=== PATIENT | female | born 2000 | race Caucasian/White ===

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

== ENCOUNTER → 2020-08-10 | Outpatient (CLI) | payer OTHER ==
--- NOTE | 2020-08-10 12:28 | US ---
EXAMINATION TYPE: US abdomen complete DATE OF EXAM: 08/10/2020 COMPARISON: NONE CLINICAL HISTORY: R10.12 LUQ PAIN. Pain EXAM MEASUREMENTS: Liver Length: 13 cm Gallbladder Wall: .2 cm CBD: .3 cm Spleen: 9.7 cm Right Kidney: 9.0 x 3.5 x 3.7 cm Left Kidney: 9.5 x 4.7 x 4.12 cm Pancreas: wnl Liver: wnl Gallbladder: wnl Evidence for sonographic Garcia's sign: No CBD: wnl Spleen: wnl Right Kidney: wnl Left Kidney: wnl Upper IVC: wnl Abd Aorta: wnl The liver is homogenous. The intrahepatic portion of the IVC and proximal abdominal aorta are within normal limits. There is no evidence of cholelithiasis. Common bile duct is unremarkable. The visu alized portions of the pancreas are homogenous. The spleen is unremarkable. Kidneys are symmetric a nd free of hydronephrosis. No renal lesions are seen. IMPRESSION: No distinct abnormality appreciated.
== END | disposition home or self-care (01) ==
LOC: RADUSWWP 07:33
PROVIDERS: ATTEND Family Medicine
DX: R10.12 Left upper quadrant pain (principal)
CPT/HCPCS: 76700

== ENCOUNTER → 2020-10-07 | Outpatient (CLI) | payer OTHER ==
[2020-10-07 20:16] LABS: Basophils # (A) 0.04 X 10*3/uL (0.00-0.10); Basophils % (A) 0.4 %; Eosinophils # (A) 0.09 X 10*3/uL (0.04-0.35); Eosinophils % (A) 0.9 %; HCT 40.9 % (37.2-46.3); HGB 13.5 g/dL (12.0-15.0); Lymphocytes # (A) 2.24 X 10*3/uL (0.90-5.00); Lymphocytes % (A) 21.5 %; MCH 30.8 pg (27.0-32.0); MCV 93.4 fL (80.0-97.0); Mean Platelet Volume 10.8 fL (9.5-12.2); Monocytes # (A) 0.63 X 10*3/uL (0.20-1.00); Neutrophils # (A) 7.38 X 10*3/uL (1.80-7.70); Neutrophils % (A) 70.8 %; Platelet Count 250 X 10*3/uL (140-440); RBC 4.38 X 10*6/uL (4.10-5.20); RDW 11.9 % (11.5-14.5); WBC 10.42 X 10*3/uL (4.50-10.00)
[2020-10-07 21:02] LABS: Thyroid Peroxidase Antibodies 34.8 U/mL (0.0-60.0)
[2020-10-07 21:17] LABS: Immunoglobulin E 20.7 IU/mL (0.00-114.00)
[2020-10-07 22:16] LABS: African American GFR (CKD) 144.6 (60.0-200.0); Albumin 4.7 g/dL (3.80-4.90); Albumin/Globulin Ratio 2.35 (1.60-3.17); Anion Gap 10.2 mmol/L (4.00-12.00); BUN/Creat Ratio 21.43 Ratio (12.00-20.00); Calcium 9.6 mg/dL (8.7-10.3); Carbon Dioxide 23.8 mmol/L (21.6-31.8); Non-African American GFR(CKD) 124.7 (60.0-200.0); Total Bilirubin 0.3 mg/dL (0.2-1.2); Total Protein 6.7 g/dL (6.2-8.2)
[2020-10-07 22:25] LABS: Erythrocyte Sedimentation Rate 42 mm/Hr (0-20)
== END | disposition home or self-care (01) ==
LOC: LABWHC1 13:07
PROVIDERS: ATTEND Allergy & Immunology
DX: T78.3XXA Angioneurotic edema, initial encounter (principal)
CPT/HCPCS: 36415; 80053; 82784; 82785; 85025; 85652; 86160; 86161; 86376; 86800

== ENCOUNTER → 2020-10-18 | Outpatient (CLI) | payer OTHER ==
[2020-10-18 18:02] LABS: Protein, Total 6.7 g/dL (6.2-8.2)
[2020-10-19 11:31] LABS: Free Kappa Lt Chain Qnt, Serum 0.59 mg/dL (0.33-1.94); IgG Subclass 3 18.1 mg/dL (11.0-85.0); IgG Subclass 4 18.7 mg/dL (3.0-175.0)
[2020-10-19 13:42] LABS: Albumin 3.62 g/dL (3.80-4.90); Gamma Globulin 0.62 g/dL (0.70-1.50)
[2020-10-19 15:50] LABS: Gliadin AB IgG, Deaminated NEGATIVE (NEGATIVE)
[2020-10-19 16:56] LABS: Gliadin AB IgA, Deaminated NEGATIVE (NEGATIVE); Gliadin AB IgA, Unit 0.3 U/mL
== END | disposition home or self-care (01) ==
LOC: LABWHC1 09:17
PROVIDERS: ATTEND Allergy & Immunology
DX: T78.3XXA Angioneurotic edema, initial encounter (principal); R10.9 Unspecified abdominal pain
CPT/HCPCS: 36415; 82784; 82785; 82787; 83516; 83520; 83883; 84165; 86334

== ENCOUNTER 2021-01-31 20:40 | Emergency (ER) | payer OTHER ==
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
[2021-01-31 22:43] VITALS: BP 116/75; PULSE 64; RESP 18; TEMP 97.5
== END 2021-01-31 22:41 | disposition home or self-care (01) ==
LOC: EC 20:40
DX: S01.82XA Laceration with foreign body of other part of head, initial encounter (principal); F41.9 Anxiety disorder, unspecified; W25.XXXA Contact with sharp glass, initial encounter; W22.8XXA Striking against or struck by other objects, initial encounter; Y92.410 Unspecified street and highway as the place of occurrence of the external cause
CPT/HCPCS: 99283

== ENCOUNTER 2021-04-12 11:39 | Emergency (ER) | payer OTHER ==
[2021-04-12 12:14] VITALS: TEMP 97.9
[2021-04-12] MEDS ORDERED: SODIUM CHLORIDE 0.9% 1,000 ML IV STA (13:03)
[2021-04-12] MEDS ORDERED: ONDANSETRON 4 MG/2 ML VIAL IVP STA (13:03)
[2021-04-12 13:21] LABS: Amorphous Sediment,Urine Rare /hpf; Appearance,Urine Cloudy (Clear); Bacteria,Urine Rare /hpf; Bilirubin,Urine Negative (Negative); Blood,Urine Negative (Negative); Color,Urine Yellow; Glucose,Urine (UA) Negative (Negative); Ketones,Urine Negative (Negative); Leukocyte Esterase,Urine Large (Negative); Mucus,Urine Moderate /hpf; Nitrite,Urine Negative (Negative); PH, Urine 7.5 (5.0-8.0); Protein,Urine Trace (Negative); RBC,Urine 26 /hpf (0-5); Specific Gravity,Urine 1.024 (1.001-1.035); Squamous Epithelial Cell,Urine 10 /hpf (0-4); Urobilinogen,Urine <2.0 mg/dL (<2.0); WBC,Urine 43 /hpf (0-5)
[2021-04-12 13:26] LABS: Basophils % (A) 1 %; Eosinophils # (A) 0.1 k/uL (0-0.7); Eosinophils % (A) 1 %; HCT 41.6 % (34.0-46.0); HGB 14.2 gm/dL (11.4-16.0); Lymphocytes # (A) 2.3 k/uL (1.0-4.8); Lymphocytes % (A) 32 %; MCH 31.3 pg (25.0-35.0); MCHC 34.2 g/dL (31.0-37.0); MCV 91.5 fL (80.0-100.0); Mean Platelet Volume 7.4; Monocytes # (A) 0.3 k/uL (0-1.0); Monocytes % (A) 4 %; Neutrophils # (A) 4.4 k/uL (1.3-7.7); Neutrophils % (A) 61 %; Platelet Count 291 k/uL (150-450); RBC 4.55 m/uL (3.80-5.40); RDW 12.7 % (11.5-15.5); WBC 7.1 k/uL (3.8-10.6)
[2021-04-12 13:33] LABS: ALT 23 U/L (4-34); AST 29 U/L (14-36); African American GFR (CKD) >90 (>60 ml/min/1.73 sqM); Albumin 4.5 g/dL (3.5-5.0); Alkaline Phosphatase 76 U/L (38-126); Anion Gap 8 mmol/L; Blood Urea Nitrogen 24 mg/dL (7-17); Carbon Dioxide 25 mmol/L (22-30); Chloride 104 mmol/L (98-107); Glucose 92 mg/dL (74-99); Non-African American GFR(CKD) >90 (>60 ml/min/1.73 sqM); Potassium 4.3 mmol/L (3.5-5.1); Sodium 137 mmol/L (137-145); Total Bilirubin 0.2 mg/dL (0.2-1.3); Total Protein 7.3 g/dL (6.3-8.2)
[2021-04-12 13:50] VITALS: BP 104/57; PULSE 63; RESP 18
--- NOTE | 2021-04-12 13:52 | CT ---
EXAMINATION TYPE: CT abdomen pelvis wo con DATE OF EXAM: 04/12/2021 COMPARISON: None HISTORY: left flank pain, UTI CT DLP: 374.6 mGycm Examination of the solid and hollow viscera is limited given the lack of contrast. FINDINGS: LUNG BASES: No evidence for nodule. No evidence for infiltrate. LIVER/GB: The gallbladder is unremarkable. No space-occupying hepatic lesion. PANCREAS: No pancreatic mass identified. No inflammatory process seen. SPLEEN: No evidence for splenomegaly. No intrasplenic lesions seen. ADRENALS: No adrenal nodules identified. No evidence for thickening. KIDNEYS: No evidence for renal mass. No nephrolithiasis. No hydronephrosis. BOWEL: Appendix has a normal appearance. No evidence of bowel obstruction. No inflammatory process. Lymph nodes: No evidence for adenopathy greater than 1 cm. Abdominal aorta: Atheromatous changes seen. No evidence for aneurysm. Genital organs: No significant abnormality. Other: No significant abnormality. IMPRESSION: NO SIGNIFICANT ABNORMALITY TO ACCOUNT FOR THE PATIENT'S SYMPTOMS.
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
== END 2021-04-12 14:21 | disposition home or self-care (01) ==
LOC: EC 11:39
DX: N39.0 Urinary tract infection, site not specified (principal)
CPT/HCPCS: 36415; 80053; 85025; 81001; 81025; 87086; 74176; 96374; 96361; 99284; J2405

== ENCOUNTER 2021-07-11 14:02 | Emergency (ER) | payer OTHER ==
[2021-07-11] MEDS ORDERED: SODIUM CHLORIDE 0.9% 1,000 ML IV ONE (14:08)
[2021-07-11 15:08] VITALS: RESP 18; TEMP 99
[2021-07-11 15:30] LABS: Appearance,Urine Cloudy (Clear); Bilirubin,Urine Negative (Negative); Blood,Urine Negative (Negative); Color,Urine Yellow; Glucose,Urine (UA) Negative (Negative); Ketones,Urine Negative (Negative); Leukocyte Esterase,Urine Small (Negative); Mucus,Urine Many /hpf; Nitrite,Urine Negative (Negative); Protein,Urine Trace (Negative); RBC,Urine 5 /hpf (0-5); Specific Gravity,Urine 1.033 (1.001-1.035); Squamous Epithelial Cell,Urine 11 /hpf (0-4); WBC,Urine 5 /hpf (0-5)
[2021-07-11 17:51] LABS: Basophils % (A) 0 %; Eosinophils # (A) 0.1 k/uL (0-0.7); Eosinophils % (A) 2 %; HCT 43.1 % (34.0-46.0); HGB 14.8 gm/dL (11.4-16.0); Lymphocytes # (A) 2.3 k/uL (1.0-4.8); Lymphocytes % (A) 41 %; MCH 30.5 pg (25.0-35.0); MCHC 34.2 g/dL (31.0-37.0); MCV 89.1 fL (80.0-100.0); Mean Platelet Volume 7.8; Monocytes # (A) 0.3 k/uL (0-1.0); Monocytes % (A) 4 %; Neutrophils # (A) 2.9 k/uL (1.3-7.7); Neutrophils % (A) 51 %; Platelet Count 256 k/uL (150-450); RBC 4.84 m/uL (3.80-5.40); RDW 11.3 % (11.5-15.5); WBC 5.7 k/uL (3.8-10.6)
[2021-07-11 18:09] LABS: ALT 41 U/L (4-34); AST 37 U/L (14-36); African American GFR (CKD) >90 (>60 ml/min/1.73 sqM); Albumin 4.2 g/dL (3.5-5.0); Alkaline Phosphatase 101 U/L (38-126); Anion Gap 8 mmol/L; Blood Urea Nitrogen 17 mg/dL (7-17); Calcium 9.6 mg/dL (8.4-10.2); Carbon Dioxide 25 mmol/L (22-30); Chloride 104 mmol/L (98-107); Glucose 83 mg/dL (74-99); Non-African American GFR(CKD) >90 (>60 ml/min/1.73 sqM); Potassium 4.1 mmol/L (3.5-5.1); Sodium 137 mmol/L (137-145); Total Bilirubin 0.4 mg/dL (0.2-1.3); Total Protein 7.3 g/dL (6.3-8.2)
--- NOTE | 2021-07-11 19:13 | CT ---
EXAMINATION TYPE: CT abdomen pelvis w con DATE OF EXAM: 07/11/2021 COMPARISON: 04/12/2021 HISTORY: RLQ pain with fever and vomiting. CT DLP: 666.9 mGycm Automated exposure control for dose reduction was used. TECHNIQUE: Helical acquisition of images was performed from the lung bases through the pelvis. CONTRAST: Performed without Oral Contrast and with IV Contrast, patient injected with 100 mL of Isovue 300. FINDINGS: LUNG BASES: There is some mild focal airspace opacities of the lingula, left lower lobe, and minimall y at the right lower lobe. LIVER: Normal. BILIARY SYSTEM: Normal. PANCREAS: Normal. SPLEEN: Normal. ADRENALS: Normal. KIDNEYS: Normal. BOWEL: No obstruction or thickening. Appendix normal. PERITONEUM: No pneumoperitoneum. No free fluid. LYMPH NODES: There are prominent right lower quadrant mesenteric lymph nodes. PELVIS: Normal. VASCULATURE: No abdominal aortic aneurysm. MUSCULOSKELETAL: No acute osseous normality. IMPRESSION: 1. Enlarged right lower quadrant mesenteric lymph nodes may represent mesenteric adenitis. 2. Normal appendix. 3. Multilobar patchy airspace opacities of the bilateral lung bases more than expected for atelectasi s. Differential includes pneumonia.
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
[2021-07-11 19:50] VITALS: BP 106/66; PULSE 89
== END 2021-07-11 19:51 | disposition home or self-care (01) ==
LOC: EC 14:02
DX: I88.0 Nonspecific mesenteric lymphadenitis (principal)
CPT/HCPCS: 36415; 80053; 85025; 81001; 81025; 74177; 99284; 96360; Q9967

== ENCOUNTER → 2023-04-30 | Outpatient (CLI) | payer BC ==
--- NOTE | 2023-05-01 21:41 | CT ---
EXAMINATION TYPE: CT abdomen pelvis w con CT DLP: 375.5 mGycm, Automated exposure control for dose reduction was used. DATE OF EXAM: 04/30/2023 3:35 PM COMPARISON: CT abdomen pelvis most recent from 07/11/2021. CLINICAL INDICATION:Female, 23 years old with history of R10.31 RIGHT LOWER QUADRANT PAIN; RLQ pain TECHNIQUE: Axial CT of the abdomen and pelvis. Sagittal and coronal reformats were created on a [employer] workstation. Contrast used:100 mL of Isovue 300 with IV Contrast, (none if empty) Oral contrast used: with Oral Contrast (none if empty) FINDINGS: LOWER CHEST: Unremarkable ABDOMEN LIVER: Unremarkable GALLBLADDER AND BILE DUCTS: Unremarkable. PANCREAS: Unremarkable. SPLEEN: Unremarkable. ADRENAL GLANDS: Unremarkable. KIDNEYS AND URETERS: No evidence of hydronephrosis or renal calculus. The ureters are unremarkable. PELVIS BLADDER: Unremarkable REPRODUCTIVE: Unremarkable. ABDOMEN & PELVIS STOMACH AND BOWEL: No evidence of bowel obstruction. The appendix is normal. Moderate amount of stool seen throughout the colon. PERITONEUM/RETROPERITONEUM: No evidence of pneumoperitoneum or free fluid. VASCULATURE: No evidence of aortic aneurysm. MUSCULOSKELETAL: No acute osseous abnormalities LYMPH NODES: No gross evidence for lymphadenopathy. Few right lower quadrant prominent lymph nodes se en near the appendix. SOFT TISSUE/ABDOMINAL WALL: Unremarkable IMPRESSION: 1. Prominent right lower quadrant mesenteric lymph nodes. Correlate for mesenteric adenitis. Otherwi se no obvious acute process in the abdomen or pelvis. The appendix is normal. No obstructive uropathy . 2. Moderate stool burden throughout the colon.
== END | disposition home or self-care (01) ==
LOC: RADCTMAIN 13:13
PROVIDERS: ATTEND Family Medicine
DX: R59.0 Localized enlarged lymph nodes (principal); R10.31 Right lower quadrant pain
CPT/HCPCS: 74177; Q9967